=== PATIENT | male | born 1985 | race Caucasian/White ===

== ENCOUNTER 2023-01-21 15:00 | Emergency (ER) | payer OTHER, SELFPAY ==
[2023-01-21 15:03] VITALS: BP 129/92; PULSE 111; RESP 18; TEMP 36.8; O2SAT 95; BMI 29.0
--- NOTE | 2023-01-21 15:20 | ED.ANIMALBI1 ---
HPI - Animal Bite General Chief Complaint: Animal Bite Stated Complaint: dog bite rt arm Time Seen by Provider: 01/21/23 15:08 Source: patient Mode of arrival: walk-in History of Present Illness HPI narrative: 38-year-old male presents to the emergency department for dog bite sustained to his right forearm just before coming into the emergency department. He's not sure when his last tetanus shot was. No weakness or numbness in his hands. No other injury was sustained. The pain is moderate. Related Data Previous Rx's Medication Instructions Recorded amoxicillin 875 mg-potassium 1 tab PO BID #14 tabs 01/21/23 clavulanate 125 mg tablet Allergies Allergy/AdvReac Type Severity Reaction Status Date / Time Penicillins AdvReac Severe Verified 01/21/23 15:06 Review of Systems ROS Narrative A ten point review of systems is negative except as noted above. Exam Narrative Exam Narrative: Nurses note and vital signs reviewed and patient is not hypoxic. General: The patient appears well and in no apparent distress. Patient is resting comfortably on cart. Skin: Warm, dry, no pallor noted. There is no rash noted. Head: Normocephalic, atraumatic Eye: Normal conjunctiva, no drainage Ears, Nose, Mouth, and Throat: oral mucosa is moist. Nares patent. Cardiovascular: Regular Rate and Rhythm Respiratory: Patient is in no distress, no accessory muscle use, lungs are clear to auscultation, no wheezing, rales or rhonchi Back: non-tender GI: nontender Musculoskeletal: there are several puncture maya on his right forearm and a short laceration as well. It is approximately 1-1/2 cm in length. No active bleeding. Neurological: sensation intact in his hand. Fingers and wrist have full range of motion. Psychiatric: Cooperative Constitutional Vital Signs, click to edit/add: Last Vital Signs Temp 98.3 F 01/21/23 15:03 Pulse 111 H 01/21/23 15:03 Resp 18 01/21/23 15:03 BP 129/92 H 01/21/23 15:03 Pulse Ox 95 01/21/23 15:03 O2 Del Method Room Air 01/21/23 15:03 Course Vital Signs Vital signs: Vital Signs Temperature 98.3 F 01/21/23 15:03 Pulse Rate 111 H 01/21/23 15:03 Respiratory Rate 18 01/21/23 15:03 Blood Pressure 129/92 H 01/21/23 15:03 Pulse Oximetry 95 01/21/23 15:03 Oxygen Delivery Method Room Air 01/21/23 15:03 Temperature 98.3 F 01/21/23 15:03 Pulse Rate 111 H 01/21/23 15:03 Respiratory Rate 18 01/21/23 15:03 Blood Pressure 129/92 H 01/21/23 15:03 Pulse Oximetry 95 01/21/23 15:03 Oxygen Delivery Method Room Air 01/21/23 15:03 MDM - Animal Bite MDM Narrative Medical decision making narrative: tetanus is updated. He is placed on Augmentin. He's taken amoxicillin in the past without any reaction. Sutures are not indicated. The wounds were cleansed and dressed. Treatment diagnosis and follow-up were discussed with patient. Differential Diagnosis Differential diagnosis: Likely bite by animal and dog bite Discharge Plan Discharge Chief Complaint: Animal Bite Clinical Impression: Dog bite of arm Patient Disposition: Home, Self-Care Time of Disposition Decision: 15:18 Condition: Good Mode of Transportation: Private Vehicle Prescriptions / Home Meds: New amoxicillin-pot clavulanate 875-125 mg tablet 1 tab PO BID Qty: 14 0RF Instructions: Animal Bite (ED) Stand Alone Forms: Portal Instructions
[2023-01-21] MEDS: ADACEL DIPH,PERTUSS(ACELL),TET VAC/PF 0.5 ML ADULT SYRINGE IM (15:42)
== END 2023-01-21 15:51 | disposition home or self-care (01) ==
PROVIDERS: Emergency Provider Emergency Medicine
DX: S51.851A Open bite of right forearm, initial encounter (principal); W54.0XXA Bitten by dog, initial encounter; Z23 Encounter for immunization
CPT/HCPCS: 90471; 90715; 99283

== ENCOUNTER 2023-01-25 14:25 | Emergency (ER) | payer OTHER, SELFPAY ==
[2023-01-25 14:31] VITALS: BP 136/91; PULSE 67; RESP 14; TEMP 36.4; O2SAT 99
--- NOTE | 2023-01-25 14:49 | ED.ANIMALBI1 ---
HPI - Animal Bite General Chief Complaint: Animal Bite Stated Complaint: CAME IN FOR DOG BITE 01/21-POSS. INFECTION Time Seen by Provider: 01/25/23 14:28 Source: patient Mode of arrival: walk-in History of Present Illness HPI narrative: 38-year-old male presents for some redness around his dog bite wound that was sustained about four days ago. He was prescribed Augmentin at the time of the injury and no sutures were placed but he didn't fill it and he took some leftover amoxicillin that he had at home instead. No fever. He was concerned about an infection and wanted to get it checked today. Related Data Previous Rx's Medication Instructions Recorded amoxicillin 875 mg-potassium 1 tab PO BID #14 tabs 01/21/23 clavulanate 125 mg tablet amoxicillin 875 mg-potassium 1 tab PO BID #20 tabs 01/25/23 clavulanate 125 mg tablet Allergies Allergy/AdvReac Type Severity Reaction Status Date / Time Penicillins AdvReac Severe Verified 01/21/23 15:06 Review of Systems ROS Narrative A ten point review of systems is negative except as noted above. Exam Narrative Exam Narrative: Nurses note and vital signs reviewed and patient is not hypoxic. General: The patient appears well and in no apparent distress. Patient is resting comfortably on cart. Skin: Warm, dry, no pallor noted. There is no rash noted. Head: Normocephalic, atraumatic Eye: Normal conjunctiva, no drainage Ears, Nose, Mouth, and Throat: oral mucosa is moist. Nares patent. Cardiovascular: Regular Rate and Rhythm Respiratory: Patient is in no distress, no accessory muscle use, lungs are clear to auscultation, no wheezing, rales or rhonchi Back: non-tender GI: nontender Musculoskeletal: puncture maya and short laceration on his right forearm are healing but there is minimal erythema around several of these. No lymphangitis. Neurological: A&O, normal speech Psychiatric: Cooperative Constitutional Vital Signs, click to edit/add: Last Vital Signs Temp 97.6 F 01/25/23 14:31 Pulse 67 01/25/23 14:31 Resp 14 01/25/23 14:31 BP 136/91 01/25/23 14:31 Pulse Ox 99 01/25/23 14:31 O2 Del Method Room Air 01/25/23 14:36 Course Vital Signs Vital signs: Vital Signs Temperature 97.6 F 01/25/23 14:31 Pulse Rate 67 01/25/23 14:31 Respiratory Rate 14 01/25/23 14:31 Blood Pressure 136/91 01/25/23 14:31 Pulse Oximetry 99 01/25/23 14:31 Oxygen Delivery Method Room Air 01/25/23 14:31 Temperature 97.6 F 01/25/23 14:31 Pulse Rate 67 01/25/23 14:31 Respiratory Rate 14 01/25/23 14:31 Blood Pressure 136/91 01/25/23 14:31 Pulse Oximetry 99 01/25/23 14:31 Oxygen Delivery Method Room Air 01/25/23 14:36 MDM - Animal Bite MDM Narrative Medical decision making narrative: He was given IV Unasyn and counseled regarding taking the correct antibiotic. A new prescription was sent for him for the Augmentin that he states he will fill. Treatment diagnosis and follow-up were discussed with the patient. Differential Diagnosis Differential diagnosis: Likely dog bite and other (cellulitis) Discharge Plan Discharge Chief Complaint: Animal Bite Clinical Impression: Cellulitis, Dog bite of arm Patient Disposition: Home, Self-Care Time of Disposition Decision: 14:47 Condition: Good Mode of Transportation: Private Vehicle Prescriptions / Home Meds: New amoxicillin-pot clavulanate 875-125 mg tablet 1 tab PO BID Qty: 20 0RF No Action amoxicillin-pot clavulanate 875-125 mg tablet 1 tab PO BID Qty: 14 0RF Instructions: Animal Bite (ED), Cellulitis (ED) Additional Instructions: return for worsening symptoms Stand Alone Forms: Portal Instructions Referrals: Physician,Non-Staff, MD [Primary Care Provider] - 1 week
[2023-01-25] MEDS: AMPICILLIN SODIUM/SULBACTAM NA 3 GM in 0.9 % SODIUM CHLORIDE 100 ML IV (14:51)
== END 2023-01-25 15:34 | disposition home or self-care (01) ==
PROVIDERS: Emergency Provider Emergency Medicine
DX: S51.851A Open bite of right forearm, initial encounter (principal); L03.113 Cellulitis of right upper limb; W54.0XXA Bitten by dog, initial encounter
CPT/HCPCS: 96365; 99284

== ENCOUNTER 2023-04-08 13:00 | Emergency (ER) | payer OTHER, SELFPAY ==
[2023-04-08 13:09] VITALS: BP 133/92; PULSE 84; RESP 18; TEMP 37.6; O2SAT 98; BMI 28.1
--- NOTE | 2023-04-08 13:22 | XR_ITS ---
[facility] [id number] Patient Name: JOVANY OCAMPO MRN: [id number] date: 1985 Sex: M Assigned Patient Location: ER Current Patient Location: ER Accession/Order Number: [id number] Exam Date: 04/08/2023 13:30 Report Date: 04/08/2023 15:58 At the request of: ASHOK ARORA Procedure: XR chest 1V ONE-VIEW CHEST RADIOGRAPH, 04/08/2023 1:30 PM EST COMPARISON: None CLINICAL HISTORY: cough, fever and shortness of breath for 2 days. FINDINGS: No acute cardiopulmonary disease. No pulmonary edema, pneumothorax, or pleural effusion. Calcified granulomas seen in the right mid to upper lung zone. Normal heart size. No acute osseous abnormality. XR/XR chest 1V IMPRESSION: No acute abnormality identified. Electronically authenticated by: Elmer FITCH Date: 04/08/2023 15:58
--- NOTE | 2023-04-08 13:22 | ED_ITS ---
HPI - SOB/Dyspnea General Chief Complaint: Shortness of Breath/Dyspnea Stated Complaint: PRESSURE/CONGESTION Time Seen by Provider: 04/08/23 13:14 Source: patient Mode of arrival: walk-in Limitations: no limitations History of Present Illness HPI Narrative: 38-year-old male presents for cough and fever. 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 No hemoptysis. He feels tightness in his chest. No vomiting or diarrhea. Related Data Home Medications Medication Instructions Recorded Confirmed aripiprazole 10 mg tablet 10 mg PO DAILY 04/08/23 04/08/23 Allergies Allergy/AdvReac Type Severity Reaction Status Date / Time Penicillins AdvReac Severe Verified 04/08/23 13:13 Review of Systems ROS Narrative A ten point review of systems is negative except as noted above. PFSH PFSH Social History Smoking status: Current every day smoker Exam Narrative Exam Narrative: Nurses note and vital signs reviewed and patient is not hypoxic. General: The patient appears well and in no apparent distress. Patient is resting comfortably on cart. his voice is hoarse. Skin: Warm, dry, no pallor noted. There is no rash noted. Head: Normocephalic, atraumatic Eye: Normal conjunctiva, no drainage Ears, Nose, Mouth, and Throat: oral mucosa is moist. Nares patent. Cardiovascular: Regular Rate and Rhythm Respiratory: Patient is in no distress, no accessory muscle use, lungs are clear to auscultation, no wheezing, rales or rhonchi Back: non-tender GI: soft and nontender Musculoskeletal: The patient has no evidence of calf tenderness, no pitting joyce a, symmetrical pulses noted bilaterally Neurological: A&O, normal speech Psychiatric: Cooperative Constitutional Vital Signs, click to edit/add: Last Vital Signs Temp 99.6 F 04/08/23 13:09 Pulse 84 04/08/23 13:09 Resp 18 04/08/23 13:09 BP 133/92 H 04/08/23 13:09 Pulse Ox 98 04/08/23 13:09 O2 Del Method Room Air 04/08/23 13:09 Course Vital Signs Vital signs: Vital Signs Temperature 99.6 F 04/08/23 13:09 Pulse Rate 84 04/08/23 13:09 Respiratory Rate 18 04/08/23 13:09 Blood Pressure 133/92 H 04/08/23 13:09 Pulse Oximetry 98 04/08/23 13:09 Oxygen Delivery Method Room Air 04/08/23 13:09 Temperature 99.6 F 04/08/23 13:09 Pulse Rate 84 04/08/23 13:09 Respiratory Rate 18 04/08/23 13:09 Blood Pressure 133/92 H 04/08/23 13:09 Pulse Oximetry 98 04/08/23 13:09 Oxygen Delivery Method Room Air 04/08/23 13:09 MDM - SOB/Dyspnea MDM Narrative Medical decision making narrative: Covid test is positive. There is no indication for a further workup and he is able to be discharged home. Treatment diagnosis and follow-up were discussed with the patient. Differential Diagnosis Differential diagnosis: Likely community acquired pneumonia and other (strep, pneumonia) Lab Data Attestation: I reviewed the patient's lab results. Labs: Lab Results 04/08/23 Range/Units 13:15 SARS-CoV-2 (PCR) Positive A (NEGATIVE) Streptococcus Screen Negative Imaging Data Chest x-ray: My impression: chest x-ray my interpretation shows no acute findings. Discharge Plan Discharge Chief Complaint: Shortness of Breath/Dyspnea Clinical Impression: COVID-19 Patient Disposition: Home, Self-Care Time of Disposition Decision: 13:52 Condition: Good Mode of Transportation: Private Vehicle Prescriptions / Home Meds: No Action aripiprazole 10 mg tablet 10 mg PO DAILY Instructions: COVID-19 (Coronavirus Disease 2019) (ED), COVID-19: Slow the Coronavirus Spread (ED), Face Coverings (Masks) and COVID-19 (ED), How to Recover from COVID-19 at Home (ED) Stand Alone Forms: Portal Instructions Referrals: Physician,Non-Staff, MD [Primary Care Provider] - 1 week
[2023-04-08 13:48] LABS: Internal Control Within Normal Limits; SARS-CoV-2 Ag POSITIVE (NEGATIVE); Strep A Antigen Screen Negative
== END 2023-04-08 13:57 | disposition home or self-care (01) ==
PROVIDERS: Emergency Provider Emergency Medicine
DX: U07.1 COVID-19 (principal); Z79.899 Other long term (current) drug therapy; F17.210 Nicotine dependence, cigarettes, uncomplicated
CPT/HCPCS: 71045; 87070; 87811; 87880; 99284